=== PATIENT | male | born 1980 | race Two or more races ===

== ENCOUNTER 2024-10-22 12:33 | Emergency (ER) | payer MEDICAID, OTHER ==
[~2024-10-22] VITALS: Ht 185.4 cm; Wt 89.3 kg
[2024-10-22 13:01] LABS: Basophils # (auto) 0 10 ^3/uL (0-0.2); Basophils % (auto) 0.5 % (0.0-2.0); Eosinophils # (auto) 0 10 ^3/uL (0-0.8); Eosinophils % (auto) 0.8 % (0.0-7.0); Hematocrit 43.1 % (41.0-53.0); Hemoglobin 14.6 g/dL (13.5-17.5); Lymphocytes # (auto) 1.6 10 ^3/uL (0.4-5.4); Lymphocytes % (auto) 28.5 % (10.0-50.0); Mean Corpuscular Hemoglobin 30.5 pg (28.0-32.0); Mean Corpuscular Hgb Conc. 33.8 g/dL (32.0-36.0); Monocytes # (auto) 0.4 10 ^3/uL (0-1.3); Monocytes % (auto) 7.4 % (0.0-12.0); Neutrophils # (auto) 3.4 10 ^3/uL (1.6-8.6); Neutrophils % (auto) 62.8 % (37.0-80.0); Nucleated Red Blood Cells % 0.1 %; Platelet Count (auto) 208 10^3/uL (140-450); Red Blood Cells 4.79 10^6/uL (4.5-5.90); Red Cell Distribution Width 14.6 % (11.8-14.3); White Blood Cell 5.5 10^3/uL (4.4-10.8)
--- NOTE | 2024-10-22 13:07 | ED.PDOC ---
GI ASSESSMENT HPI Comments A 44 YEAR OLD MALE PRESENTS TO THE ED WITH COMPLAINT OF EPIGASTRIC PAIN AND DIZZINESS. PATIENT STATES HE STARTED HAVING INTERMITTENT EPIGASTRIC PAIN ABOUT 1.5 MONTHS AGO. PATIENT REPORTS HE BEGAN TO EXPERIENCE DIZZINESS DUE TO HIS EPIGASTRIC PAIN INHIBITING HIM FROM EATING. PATIENT NOTES HE HAS BEEN UNDER A LOT OF STRESS RECENTLY, BUT IS NOT SURE IF THIS HAS ANYTHING TO DO WITH HIS CURRENT SYMPTOMS. PATIENT NOTES HE CURRENTLY HAS NO PAIN AT THIS TIME. PATIENT DENIES ANY CHANGES, SLURRED SPEECH, ONE-SIDED WEAKNESS, FACIAL DROOP, FEVER, CHILLS, SHORTNESS OF BREATH, CHEST PAIN, NAUSEA, VOMITING, HEADACHE, OR OTHER COMPLAINTS. NO OTHER SYMPTOMS OR MODIFYING FACTORS AT THIS TIME. PATIENT IS ALERT, ORIENTED X 4, AND HAS STEADY GAIT. Chief Complaint: Abdominal Pain Time Seen by MD: 12:37 Reviewed Notes: Nurses Notes, Medications, Allergies Allergies: Coded Allergies: NO KNOWN ALLERGIES (Unverified , 10/22/24) Home Meds Active Scripts Pantoprazole Sodium Sesquihydr (Protonix) 40 Mg Tab, 40 MG PO DAILY, #20 TAB Prov:BUSHRA CISNEROS 10/22/24 Ibuprofen (Ibuprofen) 800 Mg Tab, 1 TAB PO TID, #30 TAB Prov:BUSHRA CISNEROS 10/22/24 Information Source: Patient Mode of Arrival: Ambulatory Timing: Days Duration: Since onset, Intermittent, Days Prehospital treatment: None Quality: Aching, Cramping, Colicky Vomitus: None Stool: Normal Severity: Moderate Recent: None Recent Hx of: None Pain Location: Epigastric Modifying Factors: Nothing Associated sign and symptoms: Abdominal Pain Past Medical History PAST MEDICAL HISTORY: Anxiety Surgical History: Denies all surgeries Family History Family History: Reviewed,noncontributory to illness Social History Smoker: Non-Smoker Alcohol: Denies ETOH Use Drugs: Denies Drug Use Lives In: Home Constitutional: reports: others (ANXIOUS ); denies: chills, diaphoresis, fatigue, fever, malaise, sweats, weakness EENTM: denies: blurred vision, double vision, ear bleeding, ear discharge, ear drainage, ear pain, ear ringing, eye pain, eye redness, hearing loss, mouth pain, mouth swelling, nasal discharge, nose bleeding, nose congestion, nose pain, photophobia, tearing, throat pain, throat swelling, voice changes, others Respiratory: denies: cough, hemoptysis, orthopnea, SOB at rest, shortness of breath, SOB with excertion, stridor, wheezing, others Cardiovascular: denies: chest pain, dizzy spells, diaphoresis, Dyspnea on exertion, edema, irregular heart beat, left arm pain, lightheadedness, palpitations, PND, syncope, others Gastrointestinal: reports: abdominal pain (EPIGASTRIC PAIN); denies: abdomen distended, blood streaked bowels, constipated, diarrhea, dysphagia, difficulty swallowing, hematemesis, melena, nausea, poor appetite, poor fluid intake, rectal bleeding, rectal pain, vomiting, others Genitourinary: denies: burning, dysuria, flank pain, frequency, hematuria, incontinence, penile discharge, penile sore, pain, testicle pain, testicle swelling, urgency, others Neurological: reports: dizziness; denies: fainting, headache, left sided numbness, left sided weakness, numbness, paresthesia, pre-existing deficit, right sided numbness, right sided weakness, seizure, speech problems, tingling, tremors, weakness, others Musculoskeletal: denies: back pain, gout, joint pain, joint swelling, muscle pain, muscle stiffness, neck pain, others Integumetry: denies: bruises, change in color, change in hair/nails, dryness, laceration, lesions, lumps, rash, wounds, others Allergic/Immunocompromised: denies: Difficulty Healing, Frequent Infections, Hives, Itching, others Hematologic/Lymphatic: denies: anemia, blood clots, easy bleeding, easy bruising, swollen glands, others Endocrine: denies: excessive hunger, excessive sweating, excessive thirst, excessive urination, flushing, intolerance to cold, intolerance to heat, unexplained weight gain, unexplained weight loss, others Psychiatric: denies: anxiety, bipolar disorder, depression, hopeless, panic disorder, schizophrenia, sleepless, suicidal, others All Other Systems: Reviewed and Negative Physical Exam General Appearance: No Apparent Distress, Normal, Other (ANXIOUS ) HEENT: Normal ENT Inspection, PERRL/EOMI, Pharynx Normal, TMs Normal Neck: Full Range of Motion, Non-Tender, Normal, Normal Inspection Respiratory: Chest Non-Tender, Lungs Clear, No Accessory Muscle Use, No Respiratory Distress, Normal Breath Sounds Cardiovascular: No Edema, No JVD, No Murmur, No Gallop, Normal Peripheral Pulses, Regular Rate/Rhythm Breast Exam: Deferred Gastrointestinal: No Organomegaly, No Pulsatile Mass, Normal Bowel Sounds, Soft, Tenderness (EPIGASTRIC, NO GUARDING AND REBOUND TENDERNESS. ) Genitalia: Deferred Pelvic: Deferred Rectal: Deferred Extremities: No calf tenderness, Normal capillary refill, Normal inspection, Normal range of motion, Non-tender, No pedal edema Musculoskeletal : Apperance: Normal Neurologic: Alert, acquisition consultant II-XII nml as Tested, No Motor Deficits, Normal Affect, Normal Mood, No Sensory Deficits Cerebellar Function: Normal Reflexes: Normal Skin: Dry, Normal Color, Warm Peripheral Pulses: 2+ carotid (R), 2+ carotid (L) Lymphatic: No Adenopathy Was a procedure done? Was a procedure done?: No GI differential Dx Differential Diagnosis: Cholecystitis, Constipation, Gastritis/PUD, Gastroenteritis, Inflammatory BD, Pancreatitis, Viral X-Ray, Labs, Meds, VS Vital Signs Date Time Temp Pulse Resp B/P (MAP) Pulse Ox O2 Delivery O2 Flow Rate FiO2 10/22/24 13:14 84 16 96 Room Air 10/22/24 13:14 98.1 84 16 135/97 (110) 96 98.1 10/22/24 12:56 98.1 84 16 135/97 (110) 96 Lab Test 10/22/24 13:10 10/22/24 12:53 Range/Units Urine Color Light-yellow Yellow Urine Clarity Clear Clear Urine pH 6.5 5.0-9.0 Urine Specific Goehner 1.015 1.001-1.035 Urine Protein Negative Negative Urine Ketones 2+ H Negative Urine Blood Trace H Negative /uL Urine Nitrite Negative Negative Urine Bilirubin Negative Negative Urine Urobilinogen Normal Negative mg/dL Urine Leukocyte Esterase Negative Negative /uL Urine RBC 3 0 - 3 /hpf Urine WBC 1 0 - 3 /hpf Urine Squamous Epithelial Cells Few <5 /hpf Urine Bacteria None seen None Seen /hpf Urine Mucus Few None Seen Urine Glucose Normal Normal mg/dL White Blood Count 5.5 4.4-10.8 10^3/uL Red Blood Count 4.79 4.5-5.90 10^6/uL Hemoglobin 14.6 13.5-17.5 g/dL Hematocrit 43.1 41.0-53.0 % Mean Corpuscular Volume 90.0 80.0-100.0 fL Mean Corpuscular Hemoglobin 30.5 28.0-32.0 pg Mean Corpuscular Hemoglobin Concent 33.8 32.0-36.0 g/dL Red Cell Distribution Width 14.6 H 11.8-14.3 % Platelet Count 208 140-450 10^3/uL Mean Platelet Volume 7.7 6.9-10.8 fL Neutrophils (%) (Auto) 62.8 37.0-80.0 % Lymphocytes (%) (Auto) 28.5 10.0-50.0 % Monocytes (%) (Auto) 7.4 0.0-12.0 % Eosinophils (%) (Auto) 0.8 0.0-7.0 % Basophils (%) (Auto) 0.5 0.0-2.0 % Neutrophils # (Auto) 3.4 1.6-8.6 10 ^3/uL Lymphocytes # (Auto) 1.6 0.4-5.4 10 ^3/uL Monocytes # (Auto) 0.4 0-1.3 10 ^3/uL Eosinophils # (Auto) 0 0-0.8 10 ^3/uL Basophils # (Auto) 0 0-0.2 10 ^3/uL Nucleated Red Blood Cells 0.1 % Sodium Level 140 136-145 mmol/L Potassium Level 3.9 3.5-5.1 mmol/L Chloride Level 104 98-107 mmol/L Carbon Dioxide Level 27 20-31 mmol/L Anion Gap 9 5-15 Blood Urea Nitrogen 13 9-23 mg/dL Creatinine 0.96 0.700-1.30 mg/dL Glomerular Filtration Rate Calc 100 >90 mL/min BUN/Creatinine Ratio 13.5 10.0-20.0 Serum Glucose 101 74-106 mg/dL Calcium Level 10.2 8.7-10.4 mg/dL Total Bilirubin 0.8 0.2-1.0 mg/dL Aspartate Amino Transferase (AST) 13 13-40 U/L Alanine Aminotransferase (ALT) 19 7-40 U/L Alkaline Phosphatase 96 46-116 U/L Total Protein 7.7 5.7-8.2 g/dL Albumin 4.8 3.2-4.8 g/dL Lipase 42 12-53 U/L US GALLBLADDER HISTORY: EPIGASTRIC PAIN COMPARISON: None TECHNIQUE: Transverse and longitudinal grayscale and color sonographic images were obtained of the abdomen. FINDINGS: Liver: - Size: 14.2 cm - Echogenicity: Normal - Surface Contour: Smooth - Liver Lesion(s): None - Portal Vein: Patent and forward flowing. - Bile Ducts: Normal. The common bile duct measures 4.8 mm. Gallbladder: Filled with gallstones including a 3.0 cm gallstone.. The sonographic Miner sign is negative. Pancreas: Portions not obscured by bowel gas are normal. Kidneys: - Right kidney size: 13.4 cm. 1.3 cm kidney stone and mild hydronephrosis. - Left kidney size: 13.5 cm. 1.7 cm left kidney cyst. Aorta and Inferior Vena Cava: The visualized portions of the abdominal aorta and intrahepatic vena cava are normal. Other: None IMPRESSION: Gallbladder with gallstones including a 3.0 cm gallstone. 1.3 cm kidney stone and mild hydronephrosis. ATED BY: BRADFORD GUILLERMO MD DICTATED DATE/TIME: 10/22/241418 SIGNED BY: BRADFORD GUILLERMO MD SIGNED DATE/TIME: 10/22/241418 CC: X-Ray, Labs, Meds, VS Comment LABS ORDERED: CBC, CMP, LIPASE, UA REVIEWED AND INTERPRETED RESULTS: NORMAL PATIENT'S ULTRASOUND RESULTS WERE REVIEWED BY ME AND I AGREE WITH THE RADIOLOGIST FOR INTERPRETATION. I HAVE DISCUSSED THE PATIENT'S ULTRASOUND RESULTS WITH HIM AND HE UNDERSTANDS FULLY AND AGREES WITH MY PLAN OF CARE FOR HIM. PATIENT IS SAFE TO DISCHARGE AND I HAVE INSTRUCTED HIM TO FOLLOW UP WITH HIS PRIMARY CARE PHYSICIAN IN 1-2 DAYS FOR REFERRAL TO A GENERAL SURGEON REGARDING HIS CHOLELITHIASIS. Images Reviewed?: Images reviewed and evaluated by me Time of 1ST Reevaluation: 14:34 Reevaluation 1ST: Improved Patient Education/Counseling: Diagnosis, Treatment, Need For Follow Up Family Education/Counseling: Diagnosis, Treatment, Need For Follow Up Medical Screening: No EMC Exist At This Time Departure 1 Departure Time of Disposition: 14:34 Impression: Primary Impression: Cholelithiasis Qualified Codes: K80.20 - Calculus of gallbladder without cholecystitis without obstruction Additional Impression: Right kidney stone Disposition: 01 HOME / SELF CARE / HOMELESS Condition: Stable Additional Instructions: FOLLOW-UP WITH PCP IN 1 TO 2 DAYS. TAKE MEDICATIONS PRESCRIBED. RETURN TO ED FOR ANY NEW OR WORSENING SYMPTOMS. e-Prescriptions Pantoprazole Sodium Sesquihydr (Protonix) 40 Mg Tab 40 MG PO DAILY, #20 TAB Prov: BUSHRA CISNEROS 10/22/24 Ibuprofen (Ibuprofen) 800 Mg Tab 1 TAB PO TID, #30 TAB Prov: BUSHRA CISNEROS 10/22/24 Discharged With: Self, Relative Critical Care Note Critical Care Time?: No Stability Stability form required: No I personally scribed for BUSHRA CISNEROS ([email or web address]) on 10/22/24 at 14:31. Electronically submitted by Job Anderson ([email or web address]). BUSHRA CISNEROS Oct 22, 2024 13:07
[2024-10-22 13:14] VITALS: BP 135/97; PULSE 84; RESP 16; TEMP 98.1; O2SAT 96
[2024-10-22 13:19] LABS: Alanine Aminotransferase 19 U/L (7-40); Albumin 4.8 g/dL (3.2-4.8); Alkaline Phosphatase 96 U/L (46-116); Anion Gap 9 (5-15); Aspartate Aminotransferase 13 U/L (13-40); BUN/Creatinine Ratio 13.5 (10.0-20.0); Bilirubin, Total 0.8 mg/dL (0.2-1.0); Blood Urea Nitrogen 13 mg/dL (9-23); Calcium 10.2 mg/dL (8.7-10.4); Carbon Dioxide 27 mmol/L (20-31); Chloride 104 mmol/L (98-107); Glucose 101 mg/dL (74-106); Lipase 42 U/L (12-53); Potassium 3.9 mmol/L (3.5-5.1); Sodium 140 mmol/L (136-145); Total Protein 7.7 g/dL (5.7-8.2)
[2024-10-22 13:36] LABS: Urine Bacteria None Seen /hpf (None Seen)
[2024-10-22 13:51] LABS: Urine Blood TRACE /uL (Negative); Urine Clarity Clear (Clear); Urine Color Light-Yellow (Yellow); Urine Mucus FEW (None Seen); Urine Protein, UAD Negative (Negative); Urine Specific Gravity 1.015 (1.001-1.035); Urine Urobilinogen Normal (Negative); Urine WBC 1 /hpf (0 - 3); Urine pH 6.5 (5.0-9.0)
--- NOTE | 2024-10-22 14:22 | DVH ---
US GALLBLADDER HISTORY: EPIGASTRIC PAIN COMPARISON: None TECHNIQUE: Transverse and longitudinal grayscale and color sonographic images were obtained of the ab domen. FINDINGS: Liver: - Size: 14.2 cm - Echogenicity: Normal - Surface Contour: Smooth - Liver Lesion(s): None - Portal Vein: Patent and forward flowing. - Bile Ducts: Normal. The common bile duct measures 4.8 mm. Gallbladder: Filled with gallstones including a 3.0 cm gallstone.. The sonographic Miner sign is neg ative. Pancreas: Portions not obscured by bowel gas are normal. Kidneys: - Right kidney size: 13.4 cm. 1.3 cm kidney stone and mild hydronephrosis. - Left kidney size: 13.5 cm. 1.7 cm left kidney cyst. Aorta and Inferior Vena Cava: The visualized portions of the abdominal aorta and intrahepatic vena ca va are normal. Other: None IMPRESSION: Gallbladder with gallstones including a 3.0 cm gallstone. 1.3 cm kidney stone and mild hydronephrosis.
[2024-10-22] MEDS ORDERED: PANT40TA2 PO (14:31)
[2024-10-22] MEDS ORDERED: IBUP-1456 PO (14:31)
== END 2024-10-22 14:53 | disposition home or self-care (01) ==
LOC: ER 12:33
DX: K80.20 Calculus of gallbladder without cholecystitis without obstruction (principal); N20.0 Calculus of kidney
CPT/HCPCS: 36415; 76705; 80053; 81001; 83690; 85025

== ENCOUNTER 2025-10-05 09:35 | Inpatient (IN) | payer MEDICAID, OTHER ==
[~2025-10-05] VITALS: Ht 185.4 cm; Wt 96.2 kg
[~2025-10-05 09:35] MED LIST: IBUP-1456 PO; PANT40TA2 PO
--- NOTE | 2025-10-05 10:04 | ED.PDOC ---
GI ASSESSMENT HPI Comments Mr. Madsen is a 45 year old male with medical history of cholelithiasis and hypertension, who presents today with chief complaint of abdominal pain. The patient states he has had intermittent epigastric pain since Thursday which has become constant since 3:00 a.m. this morning, described as colicky, originally in epigastrium now generalized, intensity 10/10, associated with nausea, chills, and fatigue, exacerbated by eating, without relieving factors. He denies fever, diarrhea, vomiting, dysuria, constipation, chest pain, palpitations, and shortness of breath. Due to persistence of symptoms he presents to the ED for evaluation. On initial eval, the patient is uncomfortable due to pain, febrile, hypertensive, other vitals were stable. Chief Complaint: Abdominal Pain Time Seen by MD: 09:42 Allergies: Coded Allergies: NO KNOWN ALLERGIES (Unverified , 10/22/24) Home Meds Active Scripts Pantoprazole Sodium Sesquihydr (Protonix) 40 Mg Tab, 40 MG PO DAILY, #20 TAB Prov:BUSHRA CISNEROS 10/22/24 Ibuprofen (Ibuprofen) 800 Mg Tab, 1 TAB PO TID, #30 TAB Prov:BUSHRA CISNEROS 10/22/24 Information Source: Patient Mode of Arrival: Ambulatory Timing: Days Duration: Intermittent Quality: Colicky Vomitus: None Stool: Normal Severity: Severe Recent: None Recent Hx of: None Pain Location: Diffuse, Epigastric Modifying Factors: Food Associated sign and symptoms: Nausea, Abdominal Pain Past Medical History PAST MEDICAL HISTORY: Gallstones Surgical History: Appendectomy, Denies all surgeries Family History Family History: Reviewed,noncontributory to illness Social History Smoker: Non-Smoker Alcohol: Denies ETOH Use Drugs: Denies Drug Use Lives In: Home Constitutional: reports: chills; denies: diaphoresis, fatigue, fever, malaise, sweats EENTM: reports: others; denies: blurred vision, double vision, hearing loss, mouth pain, nasal discharge, nose congestion Respiratory: denies: cough, hemoptysis, orthopnea, shortness of breath Cardiovascular: denies: chest pain, dizzy spells, diaphoresis, Dyspnea on exertion, edema, irregular heart beat, left arm pain, lightheadedness, palpitations Gastrointestinal: reports: abdominal pain, nausea, poor appetite, poor fluid intake; denies: abdomen distended, constipated, diarrhea, dysphagia, hematemesis, melena, rectal bleeding, vomiting Genitourinary: denies: burning, dysuria, flank pain, frequency, hematuria, incontinence, pain Neurological: denies: dizziness, fainting, headache, numbness, paresthesia, pre-existing deficit, seizure, weakness Musculoskeletal: denies: back pain, joint pain, joint swelling, muscle pain, muscle stiffness, neck pain Integumetry: denies: bruises, laceration, lesions, lumps, rash, wounds Physical Exam General Appearance: Moderate Distress HEENT: Normal ENT Inspection, PERRL/EOMI, Other (Dry mucous membranes ) Neck: Full Range of Motion, Non-Tender, Normal Inspection Respiratory: Chest Non-Tender, Lungs Clear, No Accessory Muscle Use, No Respiratory Distress, Normal Breath Sounds Cardiovascular: No Edema, No Murmur, Normal Peripheral Pulses, Regular Rate/Rhythm Breast Exam: Deferred Gastrointestinal: Other (Abdomen nondistended, normal bowel sounds, soft, pain to palpation of epigastrium, RUQ, LUQ, and umbilical region, Miner positive, no rebound tenderness or guarding, no palpable masses) Genitalia: Deferred Pelvic: Deferred Rectal: Deferred Extremities: Normal capillary refill, Normal inspection, Normal range of motion, Non-tender, No pedal edema Neurologic: Alert, Normal Affect, Normal Mood Cerebellar Function: Normal Reflexes: NOT DONE Skin: Normal Color Peripheral Pulses: 3+ dorsalis pedis (R), 3+ dorsalis pedis (L) Lymphatic: Other (No cervical adenopathy) Was a procedure done? Was a procedure done?: No GI differential Dx Differential Diagnosis: Bowel Obstruction, Cholangitis, Cholecystitis, Diverticular disease, Esophagitis, Gastritis/PUD, Gastroenteritis, Pancreatitis, Urolithiasis X-Ray, Labs, Meds, VS Vital Signs Date Time Temp Pulse Resp B/P (MAP) Pulse Ox O2 Delivery O2 Flow Rate FiO2 10/05/25 10:33 76 18 151/94 10/05/25 10:03 98.7 77 17 131/94 (106) 99 98.7 10/05/25 09:37 98.5 98 19 150/108 98 98.5 Lab Test 10/05/25 10:20 Range/Units White Blood Count 8.6 4.4-10.8 10^3/uL Red Blood Count 4.90 4.5-5.90 10^6/uL Hemoglobin 14.8 13.5-17.5 g/dL Hematocrit 43.6 41.0-53.0 % Mean Corpuscular Volume 89.0 80.0-100.0 fL Mean Corpuscular Hemoglobin 30.3 28.0-32.0 pg Mean Corpuscular Hemoglobin Concent 34.0 32.0-36.0 g/dL Red Cell Distribution Width 13.7 11.8-14.3 % Platelet Count 239 140-450 10^3/uL Mean Platelet Volume 7.2 6.9-10.8 fL Neutrophils (%) (Auto) 87.4 H 37.0-80.0 % Lymphocytes (%) (Auto) 7.4 L 10.0-50.0 % Monocytes (%) (Auto) 4.7 0.0-12.0 % Eosinophils (%) (Auto) 0.1 0.0-7.0 % Basophils (%) (Auto) 0.4 0.0-2.0 % Neutrophils # (Auto) 7.5 1.6-8.6 10 ^3/uL Lymphocytes # (Auto) 0.6 0.4-5.4 10 ^3/uL Monocytes # (Auto) 0.4 0-1.3 10 ^3/uL Eosinophils # (Auto) 0 0-0.8 10 ^3/uL Basophils # (Auto) 0 0-0.2 10 ^3/uL Nucleated Red Blood Cells 0.0 % Sodium Level 139 136-145 mmol/L Potassium Level 3.9 3.5-5.1 mmol/L Chloride Level 103 98-107 mmol/L Carbon Dioxide Level 26 20-31 mmol/L Anion Gap 10 5-15 Blood Urea Nitrogen 16 9-23 mg/dL Creatinine 0.85 0.700-1.30 mg/dL Glomerular Filtration Rate Calc 109 >90 mL/min BUN/Creatinine Ratio 18.8 10.0-20.0 Serum Glucose 133 H 74-106 mg/dL Calcium Level 9.6 8.7-10.4 mg/dL Total Bilirubin 2.2 H 0.2-1.0 mg/dL Aspartate Amino Transferase (AST) 495 H 13-40 U/L Alanine Aminotransferase (ALT) 390 H 7-40 U/L Alkaline Phosphatase 164 H 46-116 U/L Total Protein 8.2 5.7-8.2 g/dL Albumin 4.7 3.2-4.8 g/dL Lipase 35 12-53 U/L Current Medications Medications (Trade) Dose Ordered Sig/Joan Route Start Time Stop Time Status Last Admin Sodium Chloride 1,000 ml @ 1,000 mls/hr Q1H ONCE IV 10/05/25 10:00 10/05/25 10:59 DC 10/05/25 10:33 Ondansetron HCl (Zofran) 4 mg ONCE ONCE IV 10/05/25 10:00 10/05/25 10:21 DC 10/05/25 10:30 Morphine Sulfate 2 mg ONCE ONCE IV 10/05/25 10:00 10/05/25 10:21 DC 10/05/25 10:33 Time of 1ST Reevaluation: 11:00 Reevaluation 1ST: Unchanged Patient Education/Counseling: Diagnosis, Treatment Family Education/Counseling: Diagnosis, Treatment Comments The patient presents today with chief complaint of abdominal pain On initial evaluation, the patient is distressed due to pain, afebrile, hypertensive, other vitals are stable Examination is positive for dry mucous membranes, pain to palpation of right upper quadrant, epigastrium, and left upper quadrant, Miner sign is positive CBCs within normal range CMP shows elevated LFTs: Total bilirubin 2.2, AST 495, ALT 390, ALP [address] shows cholelithiasis, sludge, and distended gallbladder, and mild right hydronephrosis secondary to a renal pelvic calculus measuring 2.5 cm. The patient was was given one 1000 cc NS bolus, 2 mg IV morphine, Zofran 4 mg IV once, metronidazole 500 mg IV, ceftriaxone 1 g IV, and Toradol 30 mg IV once On re-evaluation, the patient states the pain persists The patient will be admitted for evaluation by General surgery and Urology SEPSIS Sepsis Screen Date sepsis recognized/suspect: Oct 05, 2025 Time Sepsis recognized/suspect: 936 Recent Procedure: No On Antibiotic Therapy: No Respiratory Rate >20: No Heart Rate >90: No Temp<36 C (96.8 F) or >38.3 C: No SBP <90 or MAP <65 mmHG: No New Acute Mental Status Change: No Is the patient on CPAP, BIPAP,: No Physician Orders Urinalysis (10/05/25 09:54) Ct Ab Pel Wo Con-No Oral Or Iv (10/05/25 09:54) Metronidazole 500mg/100ml (Flagyl 500mg/ (10/05/25 11:00) Ceftriaxone 1gm/50ml (Rocephin) (10/05/25 11:00) Npo (Nothing By Mouth) Diet (10/05/25 Lunch) Vital Signs Date Time Temp Pulse Resp B/P (MAP) Pulse Ox O2 Delivery O2 Flow Rate FiO2 10/05/25 10:33 76 18 151/94 10/05/25 10:03 98.7 77 17 131/94 (106) 99 98.7 10/05/25 09:37 98.5 98 19 150/108 98 98.5 Laboratory Tests Test 10/05/25 10:20 White Blood Count 8.6 10^3/uL (4.4-10.8) Medications Medications Dose Ordered Sig/Joan Route Start Time Stop Time Status Last Admin Dose Admin Morphine Sulfate 2 mg ONCE ONCE IV 10/05/25 10:00 10/05/25 10:21 DC 10/05/25 10:33 Ondansetron HCl 4 mg ONCE ONCE IV 10/05/25 10:00 10/05/25 10:21 DC 10/05/25 10:30 Sodium Chloride 1,000 ml @ 1,000 mls/hr Q1H ONCE IV 10/05/25 10:00 10/05/25 10:59 DC 10/05/25 10:33 Departure 1 Departure Time of Disposition: 11:23 Impression: Primary Impression: Intractable abdominal pain Additional Impression: Cholecystitis Disposition: 30 STILL A PATIENT Admit to: Med Surg Condition: Stable Critical Care Note Critical Care Time?: No Stability Stability form required: KATIE Le RESIDENT Oct 05, 2025 10:04
[2025-10-05] MEDS: ONDANSETRON HCL 4 MG/2 ML VIAL IV ONE ×2 (10:30→19:08)
[2025-10-05] MEDS: SODIUM CHLORIDE 0.9% 1,000 ML IV ONE (10:33)
[2025-10-05] MEDS: MORPHINE SULFATE INJ 2 MG/ml SYRG IV ONE (10:33)
[2025-10-05 10:41] LABS: Hematocrit 43.6 % (41.0-53.0); Hemoglobin 14.8 g/dL (13.5-17.5); Mean Corpuscular Hemoglobin 30.3 pg (28.0-32.0); Mean Corpuscular Volume 89.0 fL (80.0-100.0); Nucleated Red Blood Cells % 0.0 %
--- NOTE | 2025-10-05 10:42 | DVH ---
Indication: Abdominal pain Technique: CT axial images of the abdomen and pelvis are obtained without contrast. Coronal and sagittal reformats were obtained. Radiation Dose Information: CTDI volume is 19.82 mGy. Dose-length product is 1097.64 mGy*cm Comparison: None FINDINGS: There is limited interpretation of the abdomen and pelvis without administration of intravenous contrast. Lung bases demonstrate no pleural effusion. Adrenal glands, spleen, pancreas unremarkable in shape. Distended gallbladder. Gallbladder hyperdensity, Cholelithiasis. Liver unremarkable in shape. Nonobstructing punctate leftm renal calculus 2 mm. 2.2 cm left renal cyst. Mild right hydronephrosis secondary to right renal pelvic calculus measuring 2.5 cm. Additional right renal calculi measuring up to 8 mm. Stomach is partially distended. Small bowel loops are normal in caliber. Moderate volume stool in the colon. No secondary signs for appendicitis. Abdominal aortic atherosclerotic disease. Bladder partially distended. No free pelvic fluid. No inguinal lymphadenopathy. No aggressive osseous process. IMPRESSION: Limited evaluation without contrast. Mild right hydronephrosis secondary to a renal pelvic calculus measuring 2.5 cm. Additional right renal calculi measuring up to 8 mm. Punctate nonobstructing left renal calculi measuring up to 2 mm. Cholelithiasis, sludge and distended gallbladder. Recommend abdominal ultrasound and HIDA scan to exclude cholecystitis. Moderate volume stool within the colon. Other findings as described.
[2025-10-05 10:58] LABS: Albumin 4.7 g/dL (3.2-4.8); Anion Gap 10 (5-15); BUN/Creatinine Ratio 18.8 (10.0-20.0); Blood Urea Nitrogen 16 mg/dL (9-23); Calcium 9.6 mg/dL (8.7-10.4); Carbon Dioxide 26 mmol/L (20-31); Chloride 103 mmol/L (98-107); Lipase 35 U/L (12-53); Potassium 3.9 mmol/L (3.5-5.1); Sodium 139 mmol/L (136-145)
[2025-10-05 10:59] LABS: Alanine Aminotransferase 390 U/L (7-40); Alkaline Phosphatase 164 U/L (46-116); Bilirubin, Total 2.2 mg/dL (0.2-1.0); Glucose 133 mg/dL (74-106); Total Protein 8.2 g/dL (5.7-8.2)
[2025-10-05] MEDS: PANTOPRAZOLE 40 MG/10 ML VIAL INJ IV ONE (11:56)
[2025-10-05] MEDS: KETOROLAC TROMETH 30 MG/ML 1ML VIAL IV ONE ×2 (11:57→19:08)
[2025-10-05 12:58] VITALS: PULSE 93; RESP 17; O2SAT 97
[2025-10-05] MEDS ORDERED: ONDANSETRON HCL 4 MG/2 ML VIAL IV PRN (14:45)
[2025-10-05] MEDS ORDERED: ACETAMINOPHEN 325 MG TAB PO PRN (14:45)
[2025-10-05] MEDS ORDERED: MORPHINE SULFATE INJ 2 MG/ml SYRG IV PRN (14:45)
[2025-10-05] MEDS ORDERED: HYDROcodone-ACET 5/325MG TAB PO PRN (14:45)
--- NOTE | 2025-10-05 14:50 | DVHHP2 ---
History of Present Illness Reason for Visit: Abdominal pain History of Present Illness Ricardo Madsen is a 45-year-old male with past medical history of appendectomy, cholelithiasis and hypertension who presents to the ED with abdominal pain that started on Thursday, reports 7/10 sharp and constant pain. He states that he was eating eggs and tortilla with a banana when the pain started. Patient reports that he sees a PCP for his hypertension. Patient denies any alcohol use, tobacco use, or drug use. Patient denies any recent trauma or injury, recent sick contacts, recent travels, recent ingestion of spoiled food, chest pain, shortness of breath, fever, chills, lightheadedness, weakness, dizziness, nausea, vomiting, diarrhea, or urinary symptoms. Cardiovascular: HTN Past Medical History Cholelithiasis Past Surgical History: Appendectomy Family History: CVA, Hypertension, Other (Mom with CVA and dad with hypertension.) Smoke: No ALCOHOL: none Drugs: None Lives: with Family Domestic Violence: Neg Review of Systems Gastrointestinal: Abdominal Pain Allergies: Coded Allergies: NO KNOWN ALLERGIES (Unverified , 10/22/24) Exam Vital Signs Vital Signs Date Time Temp Pulse Resp B/P (MAP) Pulse Ox O2 Delivery O2 Flow Rate FiO2 10/05/25 13:00 82 17 139/88 (105) 99 10/05/25 12:58 Room Air* 0 21 10/05/25 10:03 98.7 98.7 General Appearance: Alert, Oriented X3, Cooperative, No acute distress HEENT: Atraumatic, PERRLA, EOMI, Mucous membr. moist/pink Respiratory: Normal air movement Cardiovascular: Normal S1, Normal S2 Abdominal: Soft Extremities: No clubbing, No cyanosis, No edema, Normal pulses Skin: No significant lesion Neuro: Normal gait, Normal speech, Strength at 5/5 X4 ext, Normal tone, Sensation intact Psych/Mental Status: Mental status NL, Mood NL Labs/Xrays Labs Test 10/05/25 10:20 Range/Units White Blood Count 8.6 4.4-10.8 10^3/uL Red Blood Count 4.90 4.5-5.90 10^6/uL Hemoglobin 14.8 13.5-17.5 g/dL Hematocrit 43.6 41.0-53.0 % Mean Corpuscular Volume 89.0 80.0-100.0 fL Mean Corpuscular Hemoglobin 30.3 28.0-32.0 pg Mean Corpuscular Hemoglobin Concent 34.0 32.0-36.0 g/dL Red Cell Distribution Width 13.7 11.8-14.3 % Platelet Count 239 140-450 10^3/uL Mean Platelet Volume 7.2 6.9-10.8 fL Neutrophils (%) (Auto) 87.4 H 37.0-80.0 % Lymphocytes (%) (Auto) 7.4 L 10.0-50.0 % Monocytes (%) (Auto) 4.7 0.0-12.0 % Eosinophils (%) (Auto) 0.1 0.0-7.0 % Basophils (%) (Auto) 0.4 0.0-2.0 % Neutrophils # (Auto) 7.5 1.6-8.6 10 ^3/uL Lymphocytes # (Auto) 0.6 0.4-5.4 10 ^3/uL Monocytes # (Auto) 0.4 0-1.3 10 ^3/uL Eosinophils # (Auto) 0 0-0.8 10 ^3/uL Basophils # (Auto) 0 0-0.2 10 ^3/uL Nucleated Red Blood Cells 0.0 % Sodium Level 139 136-145 mmol/L Potassium Level 3.9 3.5-5.1 mmol/L Chloride Level 103 98-107 mmol/L Carbon Dioxide Level 26 20-31 mmol/L Anion Gap 10 5-15 Blood Urea Nitrogen 16 9-23 mg/dL Creatinine 0.85 0.700-1.30 mg/dL Glomerular Filtration Rate Calc 109 >90 mL/min BUN/Creatinine Ratio 18.8 10.0-20.0 Serum Glucose 133 H 74-106 mg/dL Calcium Level 9.6 8.7-10.4 mg/dL Total Bilirubin 2.2 H 0.2-1.0 mg/dL Aspartate Amino Transferase (AST) 495 H 13-40 U/L Alanine Aminotransferase (ALT) 390 H 7-40 U/L Alkaline Phosphatase 164 H 46-116 U/L Total Protein 8.2 5.7-8.2 g/dL Albumin 4.7 3.2-4.8 g/dL Lipase 35 12-53 U/L Indication: Abdominal pain Technique: CT axial images of the abdomen and pelvis are obtained without contrast. Coronal and sagittal reformats were obtained. Radiation Dose Information: CTDI volume is 19.82 mGy. Dose-length product is 1097.64 mGy*cm Comparison: None FINDINGS: There is limited interpretation of the abdomen and pelvis without administration of intravenous contrast. Lung bases demonstrate no pleural effusion. Adrenal glands, spleen, pancreas unremarkable in shape. Distended gallbladder. Gallbladder hyperdensity, Cholelithiasis. Liver unremarkable in shape. Nonobstructing punctate leftm renal calculus 2 mm. 2.2 cm left renal cyst. Mild right hydronephrosis secondary to right renal pelvic calculus measuring 2.5 cm. Additional right renal calculi measuring up to 8 mm. Stomach is partially distended. Small bowel loops are normal in caliber. Moderate volume stool in the colon. No secondary signs for appendicitis. Abdominal aortic atherosclerotic disease. Bladder partially distended. No free pelvic fluid. No inguinal lymphadenopathy. No aggressive osseous process. IMPRESSION: Limited evaluation without contrast. Mild right hydronephrosis secondary to a renal pelvic calculus measuring 2.5 cm. Additional right renal calculi measuring up to 8 mm. Punctate nonobstructing left renal calculi measuring up to 2 mm. Cholelithiasis, sludge and distended gallbladder. Recommend abdominal ultrasound and HIDA scan to exclude cholecystitis. Moderate volume stool within the colon. SEPSIS Sepsis Screen Date sepsis recognized/suspect: Oct 05, 2025 Time Sepsis recognized/suspect: 1300 Recent Procedure: No On Antibiotic Therapy: No Respiratory Rate >20: No Heart Rate >90: No Temp<36 C (96.8 F) or >38.3 C: No SBP <90 or MAP <65 mmHG: No New Acute Mental Status Change: No Is the patient on CPAP, BIPAP,: No Physician Orders Urinalysis (10/05/25 09:54) Ct Ab Pel Wo Con-No Oral Or Iv (10/05/25 09:54) Npo (Nothing By Mouth) Diet (10/05/25 Lunch) Vital Signs Date Time Temp Pulse Resp B/P (MAP) Pulse Ox O2 Delivery O2 Flow Rate FiO2 10/05/25 13:00 82 17 139/88 (105) 99 10/05/25 12:58 93 17 97 Room Air* 0 21 10/05/25 12:58 99 Room Air* 0 21 10/05/25 11:03 93 17 132/77 10/05/25 10:33 76 18 151/94 10/05/25 10:03 98.7 77 17 131/94 (106) 99 98.7 10/05/25 09:37 98.5 98 19 150/108 98 98.5 Laboratory Tests Test 10/05/25 10:20 White Blood Count 8.6 10^3/uL (4.4-10.8) Medications Medications Dose Ordered Sig/Joan Route Start Time Stop Time Status Last Admin Dose Admin Ceftriaxone Sodium 50 ml @ 100 mls/hr ONCE ONCE IV 10/05/25 11:00 10/05/25 11:29 DC 10/05/25 11:56 100 MLS/HR Ketorolac Tromethamine 30 mg ONCE ONCE IV 10/05/25 11:15 10/05/25 11:23 DC 10/05/25 11:57 30 MG Metronidazole 100 ml @ 100 mls/hr ONCE ONCE IV 10/05/25 11:00 10/05/25 11:59 DC 10/05/25 11:57 100 MLS/HR Morphine Sulfate 2 mg ONCE ONCE IV 10/05/25 10:00 10/05/25 10:21 DC 10/05/25 10:33 2 MG Ondansetron HCl 4 mg ONCE ONCE IV 10/05/25 10:00 10/05/25 10:21 DC 10/05/25 10:30 4 MG Pantoprazole Sodium 40 mg ONCE ONCE IV 10/05/25 11:00 10/05/25 11:01 DC 10/05/25 11:56 40 MG Sodium Chloride 1,000 ml @ 1,000 mls/hr Q1H ONCE IV 10/05/25 10:00 10/05/25 10:59 DC 10/05/25 10:33 1,000 MLS/HR Assessment/Plan Assessment/Plan Assessment Intractable abdominal pain rule out cholecystitis Mild right hydronephrosis secondary to a renal pelvic calculus measuring 2.5 cm right renal calculi measuring up to 8 mm. Punctate nonobstructing left renal calculi measuring up to 2 mm. Cholelithiasis, sludge and distended gallbladder Transaminitis Hyperbilirubinemia History of cholelithiasis History of hypertension Plan Admit to med surge Antiemetics Pain management IV antibiotics-Zosyn Ceftriaxone and Flagyl given in ED NS 1 L given ED Lactic CT abdomen and pelvis noted UA Lipase UDS Urine culture Abdominal ultrasound HIDA scan NPO IV fluids DVT prophylaxis-SCDs PUD prophylaxis-PPIs Discussed plan of care with patient and nurse [id number] Preventive counseling healthy eating habits, physical activity, and regular checkups Plan discussed with: Patient Date of Service: Oct 05, 2025 Billing Provider: SEAN CARRASQUILLO Common Visit Codes: [id number] INP/OBS CARE (HIGH) Secondary Visit Codes: [id number] COUNSELING IND SEAN CARRASQUILLO Oct 05, 2025 14:50
[2025-10-05 15:26] LABS: Urine Protein, UAD TRACE (Negative)
[2025-10-05 15:32] LABS: Opiate Scree,Urine Neg (NEGATIVE)
[2025-10-05 15:33] LABS: Amphetamine Screen, Urine Neg (NEGATIVE); Barbiturate Scree,Urine Neg (NEGATIVE); Benzodiazephine Screen, Urine Neg (NEGATIVE); Cannabinoid Screen, Urine Neg (NEGATIVE); Cocaine Screen, Urine Neg (NEGATIVE); Phencyclidine Screen, Urine Neg (NEGATIVE)
--- NOTE | 2025-10-05 17:39 | DVH ---
EXAM: US ABDOMEN COMPLETE SONOGRAM HISTORY: pain COMPARISON: US GALLBLADDER on DOS: 10/22/24 TECHNIQUE: Multiple longitudinal and transverse sonographic images of the abdomen were obtained. Doppler was applied as indicated. FINDINGS: [PANCREAS]: The visualized portions of the pancreas are unremarkable. [AORTA]: Normal [LIVER]: 15.8 cm. increased echogenicity. There is no focal hepatic mass lesion detected. [GALLBLADDER]: Gallbladder wall measures 0.8 cm. Cholelithiasis and biliary sludge which appear to be mobile. There is no sonographic Miner sign. [BILIARY TREE]: Not well seen [SPLEEN]: 10.5 cm [ASCITES]: No free fluid is demonstrated. [VESSELS]: The main portal vein is patent on color Doppler evaluation. The inferior vena cava is patent on color Doppler evaluation. [RIGHT KIDNEY]: 12.2 cm. normal cortical echogenicity and normal contour. Echogenic shadowing structure seen of the right kidney hilum measuring up to 2.5 cm compatible with shadowing stone [LEFT KIDNEY]: 12.3 cm. normal cortical echogenicity and normal contour. No hydronephrosis IMPRESSION: 1. Gallbladder stones and sludge seen within a distended gallbladder. Negative sonographic miner's sign. No sonographic evidence of acute cholecystitis. 2. Heterogeneously echogenic liver, which is a nonspecific finding and may represent hepatic steatosis and/or other underlying hepatocellular pathology. 3. Large right renal pelvic stones.
--- NOTE | 2025-10-05 18:20 | DVH ---
Procedure: NM NM HIDA SCAN Exam Date: 10/05/2025 03:34 PM Clinical History: r/o bj Comparison Study: CT abdomen pelvis from today Nuclear Medicine Hepatobiliary Scan. Technique: Following the intravenous administration of 5.2 mCi of technetium 99m labeled Choletec multiple planar abdominal planar images were obtained in anterior projection in 1 minute intervals for 60 minutes . Right lateral images were obtained at 60 minutes after injection. Findings: The liver appears grossly normal in size. There is no abnormal persistence of the cardiac or blood pool activity. The gallbladder is not visualized at 1:00 a.m.. Gallbladder nonvisualized at 3 hours. Small bowel visualized at approximately 40-45 minutes. However on the delayed 3 hour images, there is still extensive tracer within the liver parenchyma (tracer also seen in jejunum). Impression: Findings consistent with cystic duct obstruction. Persistent tracer within the liver parenchyma at 3 hours which could indicate component of hepatic dysfunction, CBD obstruction. Correlate clinically. MRCP can be obtained for further evaluation.
[2025-10-05] MEDS ORDERED: KETOROLAC TROMETH 30 MG/ML 1ML VIAL IV ONE (18:45)
[2025-10-05 18:51] VITALS: RESP 19
[2025-10-05] MEDS: LACTATED RINGER'S 1,000 ML IV SCH (19:14)
[2025-10-05 20:31] VITALS: BP 159/101; PULSE 69; RESP 18; TEMP 97.4; O2SAT 98
[2025-10-05] MEDS: PIPERACILLIN-TAZOB 3.375GM 100 ML IV SCH (21:25)
[2025-10-05 22:14] VITALS: BP 159/101; PULSE 69; RESP 18; TEMP 97.4; O2SAT 98
[2025-10-06] VITALS (8 sets, daily range): BP systolic 111–166; BP diastolic 69–86; PULSE 63–102; RESP 16–19; TEMP 97.7–99.5; O2SAT 94–98
[2025-10-06] MEDS: KETOROLAC TROMETH 30 MG/ML 1ML VIAL IV ONE (01:42)
[2025-10-06 07:10] LABS: Hematocrit 41.7 % (41.0-53.0); Hemoglobin 14.1 g/dL (13.5-17.5); Mean Corpuscular Hemoglobin 30.0 pg (28.0-32.0); Mean Corpuscular Volume 88.9 fL (80.0-100.0); Nucleated Red Blood Cells % 0.0 %
[2025-10-06 07:31] LABS: Albumin 4.2 g/dL (3.2-4.8); Anion Gap 10 (5-15); BUN/Creatinine Ratio 14.6 (10.0-20.0); Blood Urea Nitrogen 12 mg/dL (9-23); Calcium 9.2 mg/dL (8.7-10.4); Carbon Dioxide 25 mmol/L (20-31); Chloride 105 mmol/L (98-107); Glucose 102 mg/dL (74-106); Potassium 3.9 mmol/L (3.5-5.1); Sodium 140 mmol/L (136-145); Total Protein 7.3 g/dL (5.7-8.2)
[2025-10-06 07:35] LABS: Alanine Aminotransferase 587 U/L (7-40); Alkaline Phosphatase 204 U/L (46-116); Bilirubin, Total 4.4 mg/dL (0.2-1.0)
[2025-10-06] MEDS: KETOROLAC TROMETH 30 MG/ML 1ML VIAL IV PRN (09:09)
[2025-10-06] MEDS: PANTOPRAZOLE 40 MG TAB PO SCH (10:00)
--- NOTE | 2025-10-06 11:11 | DVH ---
PROCEDURE: MRI MRCP MRI Indication: pain COMPARISON: 10/05/2025 TECHNIQUE: Multiplanar multisequence images of the brain are obtained. FINDINGS: Examination degraded by motion. Bilateral renal cysts. Mild right hydronephrosis secondary to a right renal pelvic calculus measuring 2 cm. Spleen and pancreas unremarkable. Cholelithiasis, pericholecystic and gallbladder wall edema with pericholecystic stranding. Gallbladder distention. The common bile duct is overall poorly characterized. CBD measures 4 mm. Pancreatic duct nondilated measuring 2 mm. IMPRESSION: [ Cholelithiasis, pericholecystic/ gallbladder wall edema and gallbladder distention. Findings are concerning for cholecystitis, especially given the previous CT and HIDA scan findings. Recommend surgical consultation. Overall examination limited by motion. No definitive choledocholithiasis. Common bile duct diameter appears to be within normal limits measuring 4 mm. Mild right hydronephrosis secondary to right renal pelvic calculus measuring 2 cm.
--- NOTE | 2025-10-06 14:55 | DVHINCON2 ---
Date of service: Oct 06, 2025 Family History: Hypertension G8 FATHER Allergies: Coded Allergies: NO KNOWN ALLERGIES (Unverified , 10/22/24) Home Meds Active Scripts Pantoprazole Sodium Sesquihydr (Protonix) 40 Mg Tab, 40 MG PO DAILY, #20 TAB Prov:BUSHRA CISNEROS 10/22/24 Ibuprofen (Ibuprofen) 800 Mg Tab, 1 TAB PO TID, #30 TAB Prov:BUSHRA CISNEROS 10/22/24 Current Medications Current Medications Medications (Trade) Dose Ordered Sig/Joan Route PRN Reason Start Time Stop Time Status Last Admin Piperacillin Sod/ Tazobactam Sod 100 ml @ 25 mls/hr Q8HR IV 10/05/25 22:00 10/06/25 14:20 Pantoprazole Sodium (Protonix Tablet) 40 mg DAILY PO 10/06/25 10:00 Ketorolac Tromethamine (Toradol Injection) 30 mg Q6HPRN PRN IV MODERATE PAIN (4-6 PAIN SCALE) 10/06/25 08:45 10/11/25 08:44 10/06/25 09:09 Vital Signs Vital Signs Date Time Temp Pulse Resp B/P (MAP) Pulse Ox O2 Delivery O2 Flow Rate FiO2 10/06/25 13:00 97.7 84 16 117/76 (90) 97 97.7 10/06/25 08:00 Room Air* 0 21 Labs/Diagnostic Data Labs Test 10/06/25 06:23 10/05/25 14:49 10/05/25 14:00 10/05/25 10:20 Range/Units White Blood Count 12.5 #H 4.4-10.8 10^3/uL Red Blood Count 4.69 4.5-5.90 10^6/uL Hemoglobin 14.1 13.5-17.5 g/dL Hematocrit 41.7 41.0-53.0 % Mean Corpuscular Volume 88.9 80.0-100.0 fL Mean Corpuscular Hemoglobin 30.0 28.0-32.0 pg Mean Corpuscular Hemoglobin Concent 33.8 32.0-36.0 g/dL Red Cell Distribution Width 13.8 11.8-14.3 % Platelet Count 203 140-450 10^3/uL Mean Platelet Volume 7.4 6.9-10.8 fL Neutrophils (%) (Auto) 77.1 37.0-80.0 % Lymphocytes (%) (Auto) 8.8 L 10.0-50.0 % Monocytes (%) (Auto) 13.7 H 0.0-12.0 % Eosinophils (%) (Auto) 0.1 0.0-7.0 % Basophils (%) (Auto) 0.3 0.0-2.0 % Neutrophils # (Auto) 9.7 H 1.6-8.6 10 ^3/uL Lymphocytes # (Auto) 1.1 0.4-5.4 10 ^3/uL Monocytes # (Auto) 1.7 H 0-1.3 10 ^3/uL Eosinophils # (Auto) 0 0-0.8 10 ^3/uL Basophils # (Auto) 0 0-0.2 10 ^3/uL Nucleated Red Blood Cells 0.0 % Sodium Level 140 136-145 mmol/L Potassium Level 3.9 3.5-5.1 mmol/L Chloride Level 105 98-107 mmol/L Carbon Dioxide Level 25 20-31 mmol/L Anion Gap 10 5-15 Blood Urea Nitrogen 12 9-23 mg/dL Creatinine 0.82 0.700-1.30 mg/dL Glomerular Filtration Rate Calc 110 >90 mL/min BUN/Creatinine Ratio 14.6 10.0-20.0 Serum Glucose 102 74-106 mg/dL Calcium Level 9.2 8.7-10.4 mg/dL Total Bilirubin 4.4 H 0.2-1.0 mg/dL Aspartate Amino Transferase (AST) 454 H 13-40 U/L Alanine Aminotransferase (ALT) 587 H 7-40 U/L Alkaline Phosphatase 204 H 46-116 U/L Total Protein 7.3 5.7-8.2 g/dL Albumin 4.2 3.2-4.8 g/dL Lactic Acid Level 1.1 0.4-2.0 mmol/L Urine Color Yellow Yellow Urine Clarity Clear Clear Urine pH 6.5 5.0-9.0 Urine Specific [place] 1.025 1.001-1.035 Urine Protein Trace H Negative Urine Ketones 1+ H Negative Urine Blood Negative Negative /uL Urine Nitrite Negative Negative Urine Bilirubin Negative Negative Urine Urobilinogen 6 Negative mg/dL Urine Leukocyte Esterase Negative Negative /uL Urine RBC 13 0 - 3 /hpf Urine Microscopic WBC 2 0-3 /HPF Urine Squamous Epithelial Cells Few <5 /hpf Urine Bacteria None seen None Seen /hpf Urine Mucus Few None Seen Urine Glucose Normal Normal mg/dL Urine Opiates Screen Neg NEGATIVE Urine Fentanyl Screen Neg NEGATIVE Urine Barbiturates Screen Neg NEGATIVE Urine Phencyclidine Screen Neg NEGATIVE Urine Amphetamines Screen Neg NEGATIVE Urine Benzodiazepines Screen Neg NEGATIVE Urine Cocaine Screen Neg NEGATIVE Urine Cannabinoids Screen Neg NEGATIVE Lipase 35 12-53 U/L Microbiology Date/Time Source Procedure Growth Status 10/05/25 14:00 Voided Urine Urine Culture - Preliminary No growth Resulted Assessment [id number] C/O RUQ PAIN AFEBRILE VSS ABD SOFT TENDER RUQ BUT NOW IMPROVED LFT ALKP ELEVATED R/O AC CHOLECYSTITIS R/O CBD STONE MRCP CONSIDER EMERGENT SURGERY BASED ON ONGOING EVAL Plan discussed with: Patient FABIAN CASTRO MD Oct 06, 2025 14:55
--- NOTE | 2025-10-06 16:05 | DVHINCON2 ---
DATE OF CONSULTATION: 10/06/2025 HISTORY OF PRESENT ILLNESS: He is 45 years old coming with history of appendectomy and found to have cholelithiasis, presenting with right upper abdominal pain, now feeling better and his pain is resolved. No hematemesis or melena. No bleeding per rectum. PAST MEDICAL HISTORY: Hypertension, CVA. PAST SURGICAL HISTORY: Appendectomy. PHYSICAL EXAMINATION: VITAL SIGNS: Afebrile. Stable signs. HEENT: With no evidence of pallor, cyanosis, or jaundice. NECK: Supple and nontender, with no thyromegaly or lymphadenopathy. CHEST AND LUNGS: Clear. HEART: Within normal limits. ABDOMEN: Soft. He is mildly tender. No rebound. EXTREMITIES: Unremarkable. NEUROLOGIC: He is intact. CLINICAL IMPRESSION: Rule out acute cholecystitis, rule out a CBD stone. PLAN: His liver enzyme, alkaline phosphatase is mildly elevated and the plan would be to do MRCP and then consider HIDA scan to determine the need for surgery. Perry Ralph MD RG/THAIS TID: [id number] RECEIPT: [id number] cc: Jose Campo MD
--- NOTE | 2025-10-06 16:12 | DVHPN2 ---
Subjective Overnight events noted. Patient currently is NPO for acute cholecystitis, MRCP does not show any choledocholithiasis. Patient does complain of right upper quadrant discomfort but denies any nausea vomiting. Changes from previous H/P or p: No Changes Gastrointestinal: Abdominal Pain Objective Vitals Vital Signs Date Time Temp Pulse Resp B/P (MAP) Pulse Ox O2 Delivery O2 Flow Rate FiO2 10/06/25 15:28 98.8 92 18 166/80 (108) 96 98.8 10/06/25 08:00 Room Air* 0 21 Intake/Output Intake and Output 10/06/25 07:00 Intake Total 1150 ml Balance 1150 ml Intake Oral 0 ml IV Total 1150 ml # Voids 3 Exam HEENT pupils are reactive Neck is supple CVS S1-S2 regular rate and rhythm Respiratory diminished breath sounds recent echo GI positive bowel sounds soft , positive tenderness in the right upper quadrant with minimal guarding no rigidity Extremity 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 Medications Current Medications Medications Dose Ordered Sig/Joan Route Start Time Stop Time Status Last Admin Dose Admin Lactated Ringer's 1,000 ml @ 100 mls/hr Q10H IV 10/05/25 14:45 10/06/25 01:04 100 MLS/HR Piperacillin Sod/ Tazobactam Sod 100 ml @ 25 mls/hr Q8HR IV 10/05/25 22:00 10/06/25 14:20 25 MLS/HR Ondansetron HCl 4 mg Q4HP PRN IV 10/05/25 14:45 Morphine Sulfate 2 mg Q4HPRN PRN IV 10/05/25 14:45 Pantoprazole Sodium 40 mg DAILY PO 10/06/25 10:00 Ketorolac Tromethamine 30 mg Q6HPRN PRN IV 10/06/25 08:45 10/11/25 08:44 10/06/25 15:24 30 MG Laboratory Results Laboratory Tests 10/06/25 06:23 Chemistry Test 10/06/25 06:23 Albumin 4.2 g/dL (3.2-4.8) Calcium Level 9.2 mg/dL (8.7-10.4) Total Protein 7.3 g/dL (5.7-8.2) LFT Test 10/06/25 06:23 Alanine Aminotransferase (ALT) 587 U/L (7-40) H Alkaline Phosphatase 204 U/L (46-116) H Aspartate Amino Transferase (AST) 454 U/L (13-40) H Total Bilirubin 4.4 mg/dL (0.2-1.0) H Urinalysis Test 10/05/25 14:00 Urine Color Yellow (Yellow) Urine Clarity Clear (Clear) Urine pH 6.5 (5.0-9.0) Urine Specific [place] 1.025 (1.001-1.035) Urine Protein Trace (Negative) H Urine Ketones 1+ (Negative) H Urine Blood Negative /uL (Negative) Urine Nitrite Negative (Negative) Urine Bilirubin Negative (Negative) Urine Urobilinogen 6 mg/dL (Negative) Urine Leukocyte Esterase Negative /uL (Negative) Urine RBC 13 /hpf (0 - 3) Urine Microscopic WBC 2 /HPF (0-3) Urine Squamous Epithelial Cells Few /hpf (<5) Urine Bacteria None seen /hpf (None Seen) Urine Mucus Few (None Seen) Urine Glucose Normal mg/dL (Normal) Microbiology Microbiology Date/Time Source Procedure Growth Status 10/05/25 14:00 Voided Urine Urine Culture - Preliminary No growth Resulted Assessment/Plan Assessment/Plan 45-year-old male with known history of hypertension initiated. With the right upper quadrant pain found to have next 1. Right upper quadrant pain secondary to acute cholecystitis 2. Acute cholecystitis 3. Transaminitis, ruled out choledocholithiasis with a negative MRCP 4. Leukocytosis likely reactive 5. Hypertension -keep NPO, IV fluids, IV antibiotics, general surgery consultation appreciated. Patient was recommended to have laparoscopic versus open cholecystectomy once LFT trends down. -we will follow up General surgery recommendations. Plan discussed with: Patient My Orders Orders - JOAN BURKS MD Procedure Category Date Status Time * Surgical Consult CONS 10/06/25 Transmitted Date of Service: Oct 06, 2025 Billing Provider: JOAN BURKS MD Common Visit Codes: [id number] INP/OBS CARE(HIGH) JOAN BURKS MD Oct 06, 2025 16:12
[2025-10-07] VITALS (7 sets, daily range): BP systolic 107–135; BP diastolic 69–97; PULSE 63–73; RESP 17–20; TEMP 98.5–99.8; O2SAT 95–98
[2025-10-07 06:14] LABS: Albumin 3.9 g/dL (3.2-4.8); Anion Gap 11 (5-15); BUN/Creatinine Ratio 21.6 (10.0-20.0); Blood Urea Nitrogen 16 mg/dL (9-23); Calcium 9.0 mg/dL (8.7-10.4); Carbon Dioxide 25 mmol/L (20-31); Chloride 106 mmol/L (98-107); Glucose 90 mg/dL (74-106); Potassium 3.8 mmol/L (3.5-5.1); Sodium 142 mmol/L (136-145); Total Protein 6.8 g/dL (5.7-8.2)
[2025-10-07 06:19] LABS: Alanine Aminotransferase 413 U/L (7-40); Alkaline Phosphatase 187 U/L (46-116); Bilirubin, Total 4.1 mg/dL (0.2-1.0)
--- NOTE | 2025-10-07 17:19 | DVHPN2 ---
Subjective I explained to the patient in detail that he does have acute cholecystitis, currently we are waiting for General surgery to decide for general surgery intervention for laparoscopic versus open cholecystectomy. Changes from previous H/P or p: No Changes Gastrointestinal: Abdominal Pain Objective Vitals Vital Signs Date Time Temp Pulse Resp B/P (MAP) Pulse Ox O2 Delivery O2 Flow Rate FiO2 10/07/25 16:58 98.6 71 18 127/91 (103) 98 98.6 10/07/25 08:00 Room Air* 0 21 Intake/Output Intake and Output 10/07/25 06:59 Intake Total 100 ml Balance 100 ml Intake Oral 0 ml IV Total 100 ml # Voids 7 Exam HEENT pupils are reactive Neck is supple CVS S1-S2 regular rate and rhythm Respiratory diminished breath sounds recent echo GI positive bowel sounds soft , positive tenderness in the right upper quadrant with minimal guarding no rigidity 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 Medications Current Medications Medications Dose Ordered Sig/Joan Route Start Time Stop Time Status Last Admin Dose Admin Lactated Ringer's 1,000 ml @ 100 mls/hr Q10H IV 10/05/25 14:45 10/07/25 16:52 100 MLS/HR Piperacillin Sod/ Tazobactam Sod 100 ml @ 25 mls/hr Q8HR IV 10/05/25 22:00 10/07/25 14:33 25 MLS/HR Ondansetron HCl 4 mg Q4HP PRN IV 10/05/25 14:45 Morphine Sulfate 2 mg Q4HPRN PRN IV 10/05/25 14:45 Pantoprazole Sodium 40 mg DAILY PO 10/06/25 10:00 10/07/25 09:14 40 MG Ketorolac Tromethamine 30 mg Q6HPRN PRN IV 10/06/25 08:45 10/11/25 08:44 10/07/25 05:43 30 MG Laboratory Results Laboratory Tests 10/06/25 06:23 10/07/25 05:16 Chemistry Test 10/07/25 05:16 Albumin 3.9 g/dL (3.2-4.8) Calcium Level 9.0 mg/dL (8.7-10.4) Total Protein 6.8 g/dL (5.7-8.2) LFT Test 10/07/25 05:16 Alanine Aminotransferase (ALT) 413 U/L (7-40) H Alkaline Phosphatase 187 U/L (46-116) H Aspartate Amino Transferase (AST) 148 U/L (13-40) H Total Bilirubin 4.1 mg/dL (0.2-1.0) H Urinalysis Test 10/05/25 14:00 Urine Color Yellow (Yellow) Urine Clarity Clear (Clear) Urine pH 6.5 (5.0-9.0) Urine Specific [place] 1.025 (1.001-1.035) Urine Protein Trace (Negative) H Urine Ketones 1+ (Negative) H Urine Blood Negative /uL (Negative) Urine Nitrite Negative (Negative) Urine Bilirubin Negative (Negative) Urine Urobilinogen 6 mg/dL (Negative) Urine Leukocyte Esterase Negative /uL (Negative) Urine RBC 13 /hpf (0 - 3) Urine Microscopic WBC 2 /HPF (0-3) Urine Squamous Epithelial Cells Few /hpf (<5) Urine Bacteria None seen /hpf (None Seen) Urine Mucus Few (None Seen) Urine Glucose Normal mg/dL (Normal) Microbiology Microbiology Date/Time Source Procedure Growth Status 10/05/25 14:00 Voided Urine Urine Culture - Preliminary Resulted Assessment/Plan Assessment/Plan 45-year-old male with known history of hypertension initiated. With the right upper quadrant pain found to have next 1. Right upper quadrant pain secondary to acute cholecystitis 2. Acute cholecystitis 3. Transaminitis, ruled out choledocholithiasis with a negative MRCP 4. Leukocytosis likely reactive 5. Hypertension -keep NPO, IV fluids, IV antibiotics, general surgery consultation appreciated. Patient was recommended to have laparoscopic versus open cholecystectomy once LFT trends down. -we will follow up General surgery recommendations. Plan discussed with: Patient Date of Service: Oct 07, 2025 Billing Provider: JOAN BURKS MD Common Visit Codes: [id number] INP/OBS CARE(HIGH) JOAN BURKS MD Oct 07, 2025 17:19
--- NOTE | 2025-10-07 17:24 | DVHPN2 ---
Progress Note Date Seen: Oct 07, 2025 Medical Necessity Reason Pt with a Central, PICC or Fol: No Objective vital signs Vital Sign Date Time Temp Pulse Resp B/P (MAP) Pulse Ox O2 Delivery O2 Flow Rate FiO2 10/07/25 16:58 98.6 71 18 127/91 (103) 98 98.6 10/07/25 08:00 Room Air* 0 21 Total Intake and Output 10/06/25 10/06/25 10/07/25 15:00 23:00 07:00 Intake Total 100 ml 0 ml Balance 100 ml 0 ml medications Current Medications Medications Dose Ordered Sig/Joan Route Start Time Stop Time Status Last Admin Dose Admin Lactated Ringer's 1,000 ml @ 100 mls/hr Q10H IV 10/05/25 14:45 10/07/25 16:52 100 MLS/HR Piperacillin Sod/ Tazobactam Sod 100 ml @ 25 mls/hr Q8HR IV 10/05/25 22:00 10/07/25 14:33 25 MLS/HR Ondansetron HCl 4 mg Q4HP PRN IV 10/05/25 14:45 Morphine Sulfate 2 mg Q4HPRN PRN IV 10/05/25 14:45 Pantoprazole Sodium 40 mg DAILY PO 10/06/25 10:00 10/07/25 09:14 40 MG Ketorolac Tromethamine 30 mg Q6HPRN PRN IV 10/06/25 08:45 10/11/25 08:44 10/07/25 05:43 30 MG Enoxaparin Sodium 40 mg DAILY SC 10/08/25 10:00 UNV laboratory and microbiology Laboratory Tests 10/07/25 05:16 10/06/25 06:23 Test 10/07/25 05:16 Range/Units Serum Glucose 90 74-106 mg/dL Microbiology Date/Time Source Procedure Growth Status 10/05/25 14:00 Voided Urine Urine Culture - Preliminary Resulted Problem List/Assessment/Plan Problem List/Assessment/Plan AFEBRILE VSS ABD SOFT LESS TENDER LFT TRENDING DOWN CONSIDER EMERGENT SURGERY BASED ON ONGOING EVAL REPEAT LABS AM Plan discussed with: Patient FABIAN CASTRO MD Oct 07, 2025 17:24
[2025-10-08 01:00] VITALS: BP 114/61; PULSE 79; RESP 17; TEMP 98.5; O2SAT 95
[2025-10-08 05:00] VITALS: BP 120/85; PULSE 56; RESP 18; TEMP 98.6; O2SAT 97
[2025-10-08 06:27] LABS: Hematocrit 36.6 % (41.0-53.0); Hemoglobin 12.7 g/dL (13.5-17.5); Mean Corpuscular Hemoglobin 30.9 pg (28.0-32.0); Mean Corpuscular Volume 89.3 fL (80.0-100.0); Nucleated Red Blood Cells % 0.0 %
[2025-10-08 06:34] LABS: Albumin 3.6 g/dL (3.2-4.8); BUN/Creatinine Ratio 26.6 (10.0-20.0); Blood Urea Nitrogen 17 mg/dL (9-23); Carbon Dioxide 25 mmol/L (20-31); Glucose 79 mg/dL (74-106); Potassium 3.7 mmol/L (3.5-5.1); Sodium 144 mmol/L (136-145); Total Protein 6.5 g/dL (5.7-8.2)
[2025-10-08 07:01] LABS: Alanine Aminotransferase 257 U/L (7-40); Alkaline Phosphatase 167 U/L (46-116); Bilirubin, Total 2.0 mg/dL (0.2-1.0); Calcium 8.5 mg/dL (8.7-10.4)
[2025-10-08 09:00] VITALS: BP 110/83; PULSE 60; RESP 20; TEMP 98.2; O2SAT 95
[2025-10-08 09:07] LABS: Anion Gap 10 (5-15)
[2025-10-08 09:10] LABS: Chloride 109 mmol/L (98-107)
[2025-10-08] MEDS: ENOXAPARIN SOD 40 MG/0.4 ML SYRINGE SC SCH (09:22)
[2025-10-08 13:00] VITALS: BP 136/85; PULSE 61; RESP 20; TEMP 98.1; O2SAT 97
--- NOTE | 2025-10-08 15:53 | DVHPN2 ---
Progress Note Date Seen: Oct 08, 2025 Medical Necessity Reason Pt with a Central, PICC or Fol: No Objective vital signs Vital Sign Date Time Temp Pulse Resp B/P (MAP) Pulse Ox O2 Delivery O2 Flow Rate FiO2 10/08/25 13:00 98.1 61 20 136/85 (102) 97 98.1 10/08/25 08:00 Room Air* 0 21 Total Intake and Output 10/07/25 10/07/25 10/08/25 15:00 23:00 07:00 Intake Total 900 ml 100 ml 0 ml Balance 900 ml 100 ml 0 ml medications Current Medications Medications Dose Ordered Sig/Joan Route Start Time Stop Time Status Last Admin Dose Admin Lactated Ringer's 1,000 ml @ 100 mls/hr Q10H IV 10/05/25 14:45 10/08/25 02:45 100 MLS/HR Piperacillin Sod/ Tazobactam Sod 100 ml @ 25 mls/hr Q8HR IV 10/05/25 22:00 10/08/25 14:34 25 MLS/HR Ondansetron HCl 4 mg Q4HP PRN IV 10/05/25 14:45 Morphine Sulfate 2 mg Q4HPRN PRN IV 10/05/25 14:45 Pantoprazole Sodium 40 mg DAILY PO 10/06/25 10:00 10/08/25 09:21 40 MG Ketorolac Tromethamine 30 mg Q6HPRN PRN IV 10/06/25 08:45 10/11/25 08:44 10/07/25 20:55 30 MG Enoxaparin Sodium 40 mg DAILY SC 10/08/25 10:00 10/08/25 09:22 40 MG laboratory and microbiology Laboratory Tests 10/08/25 05:34 Test 10/08/25 05:34 Range/Units Serum Glucose 79 74-106 mg/dL Microbiology Date/Time Source Procedure Growth Status 10/05/25 14:00 Voided Urine Urine Culture - Final Complete Problem List/Assessment/Plan Problem List/Assessment/Plan AFEBRILE VSS ABD SOFT NON TENDER LFT TRENDING DOWN PT WANTS TO CONSIDER ELECTIVE GB SURGERY REPEAT LABS AM ALLOW CLEAR LIQUIDS Plan discussed with: Patient My Orders My Orders Orders - FABIAN CASTRO MD Procedure Category Date Status Time Clear Liq Diet DIET 10/08/25 Transmitted Dinner FABIAN CASTRO MD Oct 08, 2025 15:53
[2025-10-08 17:00] VITALS: BP 141/87; PULSE 63; RESP 18; TEMP 98; O2SAT 98
--- NOTE | 2025-10-08 17:03 | DVHPN2 ---
Subjective Patient's LFTs are trending down, currently tolerating water, patient is requesting if surgery can be delayed. Changes from previous H/P or p: No Changes Gastrointestinal: Abdominal Pain Objective Vitals Vital Signs Date Time Temp Pulse Resp B/P (MAP) Pulse Ox O2 Delivery O2 Flow Rate FiO2 10/08/25 13:00 98.1 61 20 136/85 (102) 97 98.1 10/08/25 08:00 Room Air* 0 21 Intake/Output Intake and Output 10/08/25 07:00 Intake Total 1000 ml Balance 1000 ml Intake Oral 0 ml IV Total 1000 ml # Voids 6 Exam HEENT pupils are reactive Neck is supple CVS S1-S2 regular rate and rhythm Respiratory diminished breath sounds recent echo GI positive bowel sounds soft , positive tenderness in the right upper quadrant with minimal guarding no rigidity 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 Medications Current Medications Medications Dose Ordered Sig/Joan Route Start Time Stop Time Status Last Admin Dose Admin Lactated Ringer's 1,000 ml @ 100 mls/hr Q10H IV 10/05/25 14:45 10/08/25 02:45 100 MLS/HR Piperacillin Sod/ Tazobactam Sod 100 ml @ 25 mls/hr Q8HR IV 10/05/25 22:00 10/08/25 14:34 25 MLS/HR Ondansetron HCl 4 mg Q4HP PRN IV 10/05/25 14:45 Morphine Sulfate 2 mg Q4HPRN PRN IV 10/05/25 14:45 Pantoprazole Sodium 40 mg DAILY PO 10/06/25 10:00 10/08/25 09:21 40 MG Ketorolac Tromethamine 30 mg Q6HPRN PRN IV 10/06/25 08:45 10/11/25 08:44 10/07/25 20:55 30 MG Enoxaparin Sodium 40 mg DAILY SC 10/08/25 10:00 10/08/25 09:22 40 MG Laboratory Results Laboratory Tests 10/08/25 05:34 Chemistry Test 10/08/25 05:34 Albumin 3.6 g/dL (3.2-4.8) Calcium Level 8.5 mg/dL (8.7-10.4) L Total Protein 6.5 g/dL (5.7-8.2) LFT Test 10/08/25 05:34 Alanine Aminotransferase (ALT) 257 U/L (7-40) H Alkaline Phosphatase 167 U/L (46-116) H Aspartate Amino Transferase (AST) 50 U/L (13-40) H Total Bilirubin 2.0 mg/dL (0.2-1.0) H Urinalysis Test 10/05/25 14:00 Urine Color Yellow (Yellow) Urine Clarity Clear (Clear) Urine pH 6.5 (5.0-9.0) Urine Specific [place] 1.025 (1.001-1.035) Urine Protein Trace (Negative) H Urine Ketones 1+ (Negative) H Urine Blood Negative /uL (Negative) Urine Nitrite Negative (Negative) Urine Bilirubin Negative (Negative) Urine Urobilinogen 6 mg/dL (Negative) Urine Leukocyte Esterase Negative /uL (Negative) Urine RBC 13 /hpf (0 - 3) Urine Microscopic WBC 2 /HPF (0-3) Urine Squamous Epithelial Cells Few /hpf (<5) Urine Bacteria None seen /hpf (None Seen) Urine Mucus Few (None Seen) Urine Glucose Normal mg/dL (Normal) Microbiology Microbiology Date/Time Source Procedure Growth Status 10/05/25 14:00 Voided Urine Urine Culture - Final Complete Assessment/Plan Assessment/Plan 45-year-old male with known history of hypertension initiated. With the right upper quadrant pain found to have next 1. Right upper quadrant pain secondary to acute cholecystitis 2. Acute cholecystitis 3. Transaminitis, ruled out choledocholithiasis with a negative MRCP 4. Leukocytosis likely reactive 5. Hypertension -clear liquid diet as tolerated per General surgery, IV fluids, IV antibiotics, general surgery consultation appreciated. Patient was recommended to have laparoscopic versus open cholecystectomy once LFT trends down. -we will follow up General surgery recommendations. Plan discussed with: Patient My Orders Orders - JOAN BURKS MD Procedure Category Date Status Time Enoxaparin Sodium PHA 10/08/25 In Process (Lovenox) 10:00 Date of Service: Oct 08, 2025 Billing Provider: JOAN BURKS MD Common Visit Codes: [id number] INP/OBS CARE(HIGH) JOAN BURKS MD Oct 08, 2025 17:03
[2025-10-08 20:46] VITALS: BP 145/93; PULSE 64; RESP 16; TEMP 98.4; O2SAT 96
[2025-10-09] VITALS (7 sets, daily range): BP systolic 118–147; BP diastolic 73–97; PULSE 48–66; RESP 14–20; TEMP 97.5–98.5; O2SAT 98–99
[2025-10-09 10:39] LABS: Hematocrit 37.9 % (41.0-53.0); Hemoglobin 13.0 g/dL (13.5-17.5); Mean Corpuscular Hemoglobin 30.6 pg (28.0-32.0); Mean Corpuscular Volume 89.7 fL (80.0-100.0); Nucleated Red Blood Cells % 0.1 %
[2025-10-09 10:57] LABS: Albumin 3.9 g/dL (3.2-4.8); Anion Gap 10 (5-15); BUN/Creatinine Ratio 18.8 (10.0-20.0); Blood Urea Nitrogen 12 mg/dL (9-23); Calcium 9.0 mg/dL (8.7-10.4); Carbon Dioxide 24 mmol/L (20-31); Chloride 107 mmol/L (98-107); Glucose 88 mg/dL (74-106); Potassium 3.5 mmol/L (3.5-5.1); Sodium 141 mmol/L (136-145); Total Protein 7.1 g/dL (5.7-8.2)
[2025-10-09 11:03] LABS: Alanine Aminotransferase 189 U/L (7-40); Alkaline Phosphatase 160 U/L (46-116); Bilirubin, Total 1.5 mg/dL (0.2-1.0)
--- NOTE | 2025-10-09 16:06 | DVHPN2 ---
Subjective Overnight events noted. Patient currently tolerating clear liquid diet we will advance to full liquid. Changes from previous H/P or p: No Changes Gastrointestinal: Abdominal Pain Objective Vitals Vital Signs Date Time Temp Pulse Resp B/P (MAP) Pulse Ox O2 Delivery O2 Flow Rate FiO2 10/09/25 13:00 98.2 66 20 142/97 (112) 98 98.2 10/09/25 08:00 Room Air* 0 21 Intake/Output Intake and Output 10/09/25 07:00 Intake Total 3300 ml Balance 3300 ml Intake Oral 500 ml IV Total 2800 ml # Voids 6 Exam HEENT pupils are reactive Neck is supple CVS S1-S2 regular rate and rhythm Respiratory diminished breath sounds recent echo GI positive bowel sounds soft , positive tenderness in the right upper quadrant with minimal guarding no rigidity Extremity no edema [employer] no motor deficit Medications Current Medications Medications Dose Ordered Sig/Joan Route Start Time Stop Time Status Last Admin Dose Admin Lactated Ringer's 1,000 ml @ 100 mls/hr Q10H IV 10/05/25 14:45 10/08/25 21:55 100 MLS/HR Piperacillin Sod/ Tazobactam Sod 100 ml @ 25 mls/hr Q8HR IV 10/05/25 22:00 10/09/25 13:41 25 MLS/HR Ondansetron HCl 4 mg Q4HP PRN IV 10/05/25 14:45 Morphine Sulfate 2 mg Q4HPRN PRN IV 10/05/25 14:45 Pantoprazole Sodium 40 mg DAILY PO 10/06/25 10:00 10/09/25 09:27 40 MG Ketorolac Tromethamine 30 mg Q6HPRN PRN IV 10/06/25 08:45 10/11/25 08:44 10/09/25 02:27 30 MG Enoxaparin Sodium 40 mg DAILY SC 10/08/25 10:00 10/09/25 09:28 40 MG Laboratory Results Laboratory Tests 10/09/25 09:35 Chemistry Test 10/09/25 09:35 Albumin 3.9 g/dL (3.2-4.8) Calcium Level 9.0 mg/dL (8.7-10.4) Total Protein 7.1 g/dL (5.7-8.2) LFT Test 10/09/25 09:35 Alanine Aminotransferase (ALT) 189 U/L (7-40) H Alkaline Phosphatase 160 U/L (46-116) H Aspartate Amino Transferase (AST) 28 U/L (13-40) Total Bilirubin 1.5 mg/dL (0.2-1.0) H Urinalysis Test 10/05/25 14:00 Urine Color Yellow (Yellow) Urine Clarity Clear (Clear) Urine pH 6.5 (5.0-9.0) Urine Specific [place] 1.025 (1.001-1.035) Urine Protein Trace (Negative) H Urine Ketones 1+ (Negative) H Urine Blood Negative /uL (Negative) Urine Nitrite Negative (Negative) Urine Bilirubin Negative (Negative) Urine Urobilinogen 6 mg/dL (Negative) Urine Leukocyte Esterase Negative /uL (Negative) Urine RBC 13 /hpf (0 - 3) Urine Microscopic WBC 2 /HPF (0-3) Urine Squamous Epithelial Cells Few /hpf (<5) Urine Bacteria None seen /hpf (None Seen) Urine Mucus Few (None Seen) Urine Glucose Normal mg/dL (Normal) Microbiology Microbiology Date/Time Source Procedure Growth Status 10/05/25 14:00 Voided Urine Urine Culture - Final Complete Assessment/Plan Assessment/Plan 45-year-old male with known history of hypertension initiated. With the right upper quadrant pain found to have next 1. Right upper quadrant pain secondary to acute cholecystitis 2. Acute cholecystitis 3. Transaminitis, ruled out choledocholithiasis with a negative MRCP 4. Leukocytosis likely reactive 5. Hypertension -patient is tolerating clear liquid diet will advance to full liquid we will follow up General surgery recommendations Plan discussed with: Patient Date of Service: Oct 09, 2025 Billing Provider: JOAN BURKS MD Common Visit Codes: [id number] INP/OBS CARE(HIGH) JOAN BURKS MD Oct 09, 2025 16:06
[2025-10-10] VITALS (7 sets, daily range): BP systolic 113–147; BP diastolic 68–102; PULSE 57–66; RESP 17–20; TEMP 97.5–98.5; O2SAT 97–100
--- NOTE | 2025-10-10 13:07 | DVHPN2 ---
Progress Note Date Seen: Oct 10, 2025 Medical Necessity Reason Pt with a Central, PICC or Fol: No Objective vital signs Vital Sign Date Time Temp Pulse Resp B/P (MAP) Pulse Ox O2 Delivery O2 Flow Rate FiO2 10/10/25 12:50 98.2 66 20 133/100 (111) 98 98.2 10/09/25 20:00 Room Air* 0 21 Total Intake and Output 10/09/25 10/09/25 10/10/25 15:00 23:00 07:00 Intake Total 600 ml 400 ml Balance 600 ml 400 ml medications Current Medications Medications Dose Ordered Sig/Joan Route Start Time Stop Time Status Last Admin Dose Admin Lactated Ringer's 1,000 ml @ 100 mls/hr Q10H IV 10/05/25 14:45 10/10/25 05:24 100 MLS/HR Piperacillin Sod/ Tazobactam Sod 100 ml @ 25 mls/hr Q8HR IV 10/05/25 22:00 10/10/25 06:07 25 MLS/HR Ondansetron HCl 4 mg Q4HP PRN IV 10/05/25 14:45 Morphine Sulfate 2 mg Q4HPRN PRN IV 10/05/25 14:45 Pantoprazole Sodium 40 mg DAILY PO 10/06/25 10:00 10/10/25 09:56 40 MG Ketorolac Tromethamine 30 mg Q6HPRN PRN IV 10/06/25 08:45 10/11/25 08:44 10/09/25 02:27 30 MG Enoxaparin Sodium 40 mg DAILY SC 10/08/25 10:00 10/10/25 09:56 40 MG laboratory and microbiology Laboratory Tests 10/09/25 09:35 Test 10/09/25 09:35 Range/Units Serum Glucose 88 74-106 mg/dL Microbiology Date/Time Source Procedure Growth Status 10/05/25 14:00 Voided Urine Urine Culture - Final Complete Problem List/Assessment/Plan Problem List/Assessment/Plan AFEBRILE VSS ABD SOFT NON TENDER LFT TRENDING DOWN PT WANTS TO CONSIDER ELECTIVE GB SURGERY REPEAT LABS AM HEIDE FULL LIQUIDS CLEARED FOR DISCHARGE Plan discussed with: Patient FABIAN CASTRO MD Oct 10, 2025 13:07
[2025-10-10] MEDS ORDERED: AUG875T PO (15:48)
--- NOTE | 2025-10-10 15:52 | DVHDS2 ---
Discharge Summary Date of Admission Oct 05, 2025 at 14:40 Date of Discharge: Oct 10, 2025 Labs/Diagnostic Data: Laboratory Results Test 10/09/25 09:35 10/05/25 14:49 10/05/25 14:00 10/05/25 10:20 White Blood Count 6.4 10^3/uL (4.4-10.8) Red Blood Count 4.23 10^6/uL (4.5-5.90) Hemoglobin 13.0 g/dL (13.5-17.5) Hematocrit 37.9 % (41.0-53.0) Mean Corpuscular Volume 89.7 fL (80.0-100.0) Mean Corpuscular Hemoglobin 30.6 pg (28.0-32.0) Mean Corpuscular Hemoglobin Concent 34.1 g/dL (32.0-36.0) Red Cell Distribution Width 13.7 % (11.8-14.3) Platelet Count 202 10^3/uL (140-450) Mean Platelet Volume 7.7 fL (6.9-10.8) Neutrophils (%) (Auto) 67.0 % (37.0-80.0) Lymphocytes (%) (Auto) 17.8 % (10.0-50.0) Monocytes (%) (Auto) 12.2 % (0.0-12.0) Eosinophils (%) (Auto) 2.4 % (0.0-7.0) Basophils (%) (Auto) 0.6 % (0.0-2.0) Neutrophils # (Auto) 4.3 10 ^3/uL (1.6-8.6) Lymphocytes # (Auto) 1.1 10 ^3/uL (0.4-5.4) Monocytes # (Auto) 0.8 10 ^3/uL (0-1.3) Eosinophils # (Auto) 0.2 10 ^3/uL (0-0.8) Basophils # (Auto) 0 10 ^3/uL (0-0.2) Nucleated Red Blood Cells 0.1 % Sodium Level 141 mmol/L (136-145) Potassium Level 3.5 mmol/L (3.5-5.1) Chloride Level 107 mmol/L (98-107) Carbon Dioxide Level 24 mmol/L (20-31) Anion Gap 10 (5-15) Blood Urea Nitrogen 12 mg/dL (9-23) Creatinine 0.64 mg/dL (0.700-1.30) Glomerular Filtration Rate Calc 119 mL/min (>90) BUN/Creatinine Ratio 18.8 (10.0-20.0) Serum Glucose 88 mg/dL (74-106) Calcium Level 9.0 mg/dL (8.7-10.4) Total Bilirubin 1.5 mg/dL (0.2-1.0) Aspartate Amino Transferase (AST) 28 U/L (13-40) Alanine Aminotransferase (ALT) 189 U/L (7-40) Alkaline Phosphatase 160 U/L (46-116) Total Protein 7.1 g/dL (5.7-8.2) Albumin 3.9 g/dL (3.2-4.8) Lactic Acid Level 1.1 mmol/L (0.4-2.0) Urine Color Yellow (Yellow) Urine Clarity Clear (Clear) Urine pH 6.5 (5.0-9.0) Urine Specific [place] 1.025 (1.001-1.035) Urine Protein Trace (Negative) Urine Ketones 1+ (Negative) Urine Blood Negative /uL (Negative) Urine Nitrite Negative (Negative) Urine Bilirubin Negative (Negative) Urine Urobilinogen 6 mg/dL (Negative) Urine Leukocyte Esterase Negative /uL (Negative) Urine RBC 13 /hpf (0 - 3) Urine Microscopic WBC 2 /HPF (0-3) Urine Squamous Epithelial Cells Few /hpf (<5) Urine Bacteria None seen /hpf (None Seen) Urine Mucus Few (None Seen) Urine Glucose Normal mg/dL (Normal) Urine Opiates Screen Neg (NEGATIVE) Urine Fentanyl Screen Neg (NEGATIVE) Urine Barbiturates Screen Neg (NEGATIVE) Urine Phencyclidine Screen Neg (NEGATIVE) Urine Amphetamines Screen Neg (NEGATIVE) Urine Benzodiazepines Screen Neg (NEGATIVE) Urine Cocaine Screen Neg (NEGATIVE) Urine Cannabinoids Screen Neg (NEGATIVE) Lipase 35 U/L (12-53) Other Laboratory Tests 10/09/25 09:35 Brief Hx & Hospital Course: 45-year-old male with known history of hypertension , initially presented to the hospital with a right upper quadrant pain associated with the nausea found to have acute cholecystitis. Patient's liver functions were high. General surgery was consulted. MRCP shows no evidence of any choledocholithiasis, HIDA scan is consistent with a acute cholecystitis. Patient was very hesitant to get surgical intervention. Eventually patient was started on clear liquid diet he tolerated well and currently he is tolerating full liquid diet. Patient is cleared to be discharged by General surgery for outpatient elective cholecystectomy. Patient was explained in case he gets worsening abdominal pain nausea and vomiting fevers chills always come back to ER. Patient is currently understand verbalized understanding and agreeable to plan. Augmentin as prescribed. Please follow up with Dr. Liz Ralph in one week with a repeat liver function tests. Condition at Discharge: Stable Final Diagnosis/Problems List 45-year-old male with known history of hypertension initiated. With the right upper quadrant pain found to have next 1. Right upper quadrant pain secondary to acute cholecystitis 2. Acute cholecystitis 3. Transaminitis, ruled out choledocholithiasis with a negative MRCP 4. Leukocytosis likely reactive 5. Hypertension Discharge Disposition: Home SNF Discharge Will this Physician continue t: No Discharge Instruct/Medications Diet: Cardiac 2g Na,low cholest Activity: No Restrictions, As Tolerated Follow Up/Referral: Please follow up with the Dr. Liz Ralph in one week with a repeat liver function tests. Medications: Augmentin as prescribed. New Medications: Amoxicillin & Pot Clavulanate (Augmentin Tablet) 875 Mg Tb 875 MG PO BID for 7 Days, #14 TAB Continued Medications: Pantoprazole Sodium Sesquihydr (Protonix) 40 Mg Tab 40 MG PO DAILY, #20 TAB Discontinued Medications: Ibuprofen (Ibuprofen) 800 Mg Tab 1 TAB PO TID, #30 TAB Scheduled Amoxicillin & Pot Clavulanate (Augmentin Tablet), 875 MG PO BID Ibuprofen (Ibuprofen), 1 TAB PO TID Pantoprazole Sodium Sesquihydr (Protonix), 40 MG PO DAILY Discharge Statement: "Patient was advised to return to the ER or call 911 if any headaches, dizziness, shortness of breath, chest pain, abdominal pain, bleeding, fevers, or worsening of medical condition. Patient was counseled about treatment plan, medications, possible side effects, patientverbalized understanding. All questions were answered to the best of my ability. This discharge took greater then 30 minutes in planning, reviewing documentation, counseling the patient, and discussing with other team members." ASSESSMENT ASSESSMENT Assessment 45-year-old male with known history of hypertension initiated. With the right upper quadrant pain found to have next 1. Right upper quadrant pain secondary to acute cholecystitis 2. Acute cholecystitis 3. Transaminitis, ruled out choledocholithiasis with a negative MRCP 4. Leukocytosis likely reactive 5. Hypertension Date of Service: Oct 10, 2025 Billing Provider: JOAN BURKS MD Common Visit Codes: [id number] DISCH DAY >30min JOAN BURKS MD Oct 10, 2025 15:52
== END 2025-10-10 18:57 | disposition home or self-care (01) | DRG 445 ==
LOC: ER 09:35 → OVERFLOW 14:40 → CENTRAL 18:47
PROVIDERS: ADMIT Internal Medicine; ATTEND Internal Medicine
DX: K80.00 Calculus of gallbladder with acute cholecystitis without obstruction (principal); N13.2 Hydronephrosis with renal and ureteral calculous obstruction; I10 Essential (primary) hypertension; K82.8 Other specified diseases of gallbladder; R74.01 Elevation of levels of liver transaminase levels; Z82.49 Family history of ischemic heart disease and other diseases of the circulatory system; Z82.3 Family history of stroke; Z90.49 Acquired absence of other specified parts of digestive tract; Z86.73 Personal history of transient ischemic attack (TIA), and cerebral infarction without residual deficits; Z79.899 Other long term (current) drug therapy
CPT/HCPCS: 36415; 74176; 74181; 76700; 78226; 80053; 80307; 81001; 83605; 83690; 85025; 87086; 96361; 96365; 96368; 96375; G0378; J1885; J2405; J2470; J2543; J3490